=== PATIENT | female | born 1985 | race Caucasian/White ===

== ENCOUNTER 2019-05-21 11:45 | Emergency (ER) | payer OTHER ==
[~2019-05-21] VITALS: Ht 162.6 cm; Wt 58.3 kg
[~2019-05-21 11:45] MED LIST: CEPH-443 PO; NAPR-985 PO
[2019-05-21 11:53] VITALS: BP 137/93; PULSE 96; RESP 20; Ht 162.6 cm; Wt 58.3 kg
[2019-05-21] MEDS ORDERED: KETOROLAC 30 MG INJ IM STA (13:18)
[2019-05-21] MEDS ORDERED: OXYCODONE/ACETAMINOPHEN (5/325) TAB PO ONE (13:30)
== END 2019-05-21 14:47 | disposition home or self-care (01) ==
LOC: FTE 11:45
DX: G44.209 Tension-type headache, unspecified, not intractable (principal); Z87.891 Personal history of nicotine dependence
CPT/HCPCS: 81001; 81025; 96372; J1885; Z7502; Z7610